=== PATIENT | female | born 1940 | race Caucasian/White ===

== ENCOUNTER 2021-06-03 11:23 | Outpatient (CLI) | payer MEDICARE, OTHER | END 2021-06-03 11:24 | disposition home or self-care (01) | LOC: BICRAD 11:23 | PROVIDERS: ATTEND Family Medicine | DX: M79.672 Pain in left foot (principal) ==

== ENCOUNTER 2023-02-02 10:40 | Inpatient (IN) | payer MEDICARE, OTHER ==
[2023-02-02 11:06] LABS: #Eosinphils 0.1 thou/uL (0.0-0.7); #Monocytes 0.6 thou/uL (0.11-0.59); #Neutrophils 4.8 thou/uL (1.40-6.50); %Basophils 0.4 % (0.0-1.0); %Eosinophils 0.7 % (0.0-10.0); %Lymphocytes 22.8 % (21.0-51.0); %Monocytes 8.7 % (0.0-10.0); %Neutrophils 67.3 % (42.0-75.0); Hematocrit 41.3 % (36.0-47.0); Hemoglobin 13.5 g/dL (12.0-16.0); Mean Corpuscular HGB CONC 32.7 g/dL (32.0-36.0); Mean Corpuscular Volume 85.5 fl (78.0-98.0); Mean Platelet Volume 9.9 fL (7.4-10.4); Platelet Count 269 10x3/uL (130-400); RBC Distribution Width 14.1 % (11.5-14.5); Red Blood Cell (RBC) Count 4.83 mill/uL (4.20-5.40); White Blood Cell (WBC) Count 7.2 10x3/uL (4.8-10.8)
[2023-02-02] MEDS ORDERED: dilTIAZem 125 MG/25 ML SDV ONE (11:12)
[2023-02-02 11:25] LABS: ALT (SGPT) 13 U/L (8-55); AST (SGOT) 22 U/L (5-34); Albumin 4.8 g/dL (3.4-4.8); Alkaline Phosphatase 85 U/L (40-110); Anion Gap 17 mmol/L (10-20); BUN (Urea Nitrogen) 16 mg/dL (9.8-20.1); Bilirubin, Total 0.8 mg/dL (0.2-1.2); Calc. Creatinine Clearance 0 mL/min (70-130); Calcium 9.8 mg/dL (7.8-10.44); Carbon Dioxide 27 mmol/L (23-31); Chloride 102 mmol/L (98-107); Estimated GFR 56; Globulin 3.8 g/dL (2.4-3.5); Glucose 122 mg/dL (83-110); Potassium 3.5 mmol/L (3.5-5.1); Protein, Total 8.6 g/dL (5.8-8.1); Sodium 142 mmol/L (136-145)
[2023-02-02 11:27] LABS: INR-International Normal Ratio 1.9; PTT 35.8 sec (22.9-36.1); Prothrombin Time 22.2 sec (12.0-14.7)
[2023-02-02 11:28] LABS: Troponin I 0.018 ng/mL (< 0.028)
[2023-02-02] MEDS ORDERED: Acetaminophen 325 MG TAB PO PRN (12:39)
[2023-02-02] MEDS ORDERED: Ondansetron PF 4 MG/2 ML Vial IVP PRN (12:39)
[2023-02-02] MEDS ORDERED: HYDROcodone/Acetaminophen 5/325 mg Tablet PO PRN (12:39)
[2023-02-02] MEDS ORDERED: dilTIAZem 125 MG in Sodium Chloride 0.9% 100 ML IVPB SCH (12:45)
[2023-02-02] MEDS ORDERED: Dronedarone HCl 400 MG TAB PO SCH (14:00)
[2023-02-02 14:10] LABS: Troponin I 0.017 ng/mL (< 0.028)
[2023-02-02 17:34] LABS: Troponin I 0.016 ng/mL (< 0.028)
[2023-02-02] MEDS ORDERED: FLU VACC QS2023(65UP)/MF59C/PF 60 MCG/0.5 ML SYRINGE IM ONE (18:00)
[2023-02-02] MEDS ORDERED: Famotidine/PF 20 mg/2ml Vial SLOW IVP SCH (21:00)
[2023-02-02 21:57] VITALS: BMI 31.8
[2023-02-03 06:38] LABS: #Eosinphils 0.2 thou/uL (0.0-0.7); #Monocytes 0.6 thou/uL (0.11-0.59); %Basophils 0.5 % (0.0-1.0); %Eosinophils 3.6 % (0.0-10.0); %Lymphocytes 30.4 % (21.0-51.0); %Monocytes 11.1 % (0.0-10.0); %Neutrophils 54.2 % (42.0-75.0); Hematocrit 34.6 % (36.0-47.0); Hemoglobin 10.9 g/dL (12.0-16.0); Mean Corpuscular HGB CONC 31.5 g/dL (32.0-36.0); Mean Corpuscular Hemoglobin 27.7 pg (27.0-31.0); Mean Platelet Volume 10.6 fL (7.4-10.4); Platelet Count 234 10x3/uL (130-400); RBC Distribution Width 14.2 % (11.5-14.5); Red Blood Cell (RBC) Count 3.93 mill/uL (4.20-5.40); White Blood Cell (WBC) Count 5.6 10x3/uL (4.8-10.8)
[2023-02-03 07:11] LABS: Anion Gap 13 mmol/L (10-20); BUN (Urea Nitrogen) 16 mg/dL (9.8-20.1); Calc. Creatinine Clearance 55 mL/min (70-130); Calcium 8.7 mg/dL (7.8-10.44); Carbon Dioxide 27 mmol/L (23-31); Chloride 108 mmol/L (98-107); Estimated GFR 61; Glucose 98 mg/dL (83-110); Magnesium 2.2 mg/dL (1.6-2.6); Potassium 3.6 mmol/L (3.5-5.1); Sodium 144 mmol/L (136-145)
[2023-02-03] MEDS ORDERED: Potassium Chloride 20 MEQ TAB PO SCH (08:15)
[2023-02-03] MEDS ORDERED: Dronedarone HCl 400 MG TAB PO SCH (09:45)
[2023-02-03] MEDS: Rivaroxaban 10 MG TAB PO SCH (10:41)
[2023-02-03] MEDS: Montelukast Sodium 10 mg Tablet PO SCH (10:41)
[2023-02-03] MEDS: Furosemide 40 MG TAB PO SCH (10:42)
[2023-02-03] MEDS: dilTIAZem 125 MG, Admixture Fee 1 EACH in Sodium Chloride 0.9% 100 ML IVPB SCH (15:39)
[2023-02-03] MEDS ORDERED: FLU VACC QS2023(65UP)/MF59C/PF 60 MCG/0.5 ML SYRINGE IM ONE (17:00)
[2023-02-03] MEDS: Dronedarone HCl 400 MG TAB PO SCH (18:16)
[2023-02-03] MEDS ORDERED: diphenhydrAMINE 25 MG CAP PO PRN (18:39)
[2023-02-04] MEDS: dilTIAZem 125 MG, Admixture Fee 1 EACH in Sodium Chloride 0.9% 100 ML IVPB SCH (00:27)
[2023-02-04 04:53] LABS: #Eosinphils 0.2 thou/uL (0.0-0.7); #Monocytes 0.7 thou/uL (0.11-0.59); #Neutrophils 4.4 thou/uL (1.40-6.50); %Basophils 0.4 % (0.0-1.0); %Eosinophils 2.5 % (0.0-10.0); %Lymphocytes 24.7 % (21.0-51.0); %Monocytes 9.8 % (0.0-10.0); %Neutrophils 62.3 % (42.0-75.0); Hematocrit 33.4 % (36.0-47.0); Hemoglobin 10.7 g/dL (12.0-16.0); Mean Corpuscular Hemoglobin 28.3 pg (27.0-31.0); Mean Corpuscular Volume 88.4 fl (78.0-98.0); Mean Platelet Volume 10.1 fL (7.4-10.4); Platelet Count 226 10x3/uL (130-400); RBC Distribution Width 14.4 % (11.5-14.5); Red Blood Cell (RBC) Count 3.78 mill/uL (4.20-5.40); White Blood Cell (WBC) Count 7.1 10x3/uL (4.8-10.8)
[2023-02-04 05:18] LABS: Anion Gap 13 mmol/L (10-20); BUN (Urea Nitrogen) 21 mg/dL (9.8-20.1); Calc. Creatinine Clearance 56 mL/min (70-130); Carbon Dioxide 25 mmol/L (23-31); Chloride 108 mmol/L (98-107); Estimated GFR 62; Glucose 106 mg/dL (83-110); Potassium 3.7 mmol/L (3.5-5.1); Sodium 142 mmol/L (136-145)
[2023-02-04 08:30] VITALS: TEMP 97.8
[2023-02-04] MEDS: Potassium Chloride 20 MEQ in Premix Bag 1 BAG IVPB SCH ×2 (08:53→10:16)
[2023-02-04] MEDS: Furosemide 40 MG TAB PO SCH (08:54)
[2023-02-04] MEDS: Dronedarone HCl 400 MG TAB PO SCH (08:54)
[2023-02-04] MEDS: Rivaroxaban 10 MG TAB PO SCH (08:54)
[2023-02-04] MEDS: Montelukast Sodium 10 mg Tablet PO SCH (08:54)
[2023-02-04] MEDS ORDERED: PROPOFOL 200 MG/20 ML VIAL ONE (10:01)
[2023-02-04] MEDS ORDERED: Lidocaine 1% PF 5 ML VIAL ONE (10:01)
[2023-02-04] MEDS ORDERED: Potassium Chloride 20 MEQ TAB PO SCH ×2 (11:00→17:00)
[2023-02-04 11:48] VITALS: BP 139/77
== END 2023-02-04 13:14 | disposition home or self-care (01) | DRG 310 ==
LOC: ERS 10:40 → 2SW 12:17 → OBSVTOIN 02-03 09:56
PROVIDERS: ADMIT Family Medicine; ATTEND Internal Medicine
PROC: 5A2204Z Restoration of Cardiac Rhythm, Single (ICD-10-PCS; principal; 2023-02-04)
DX: I48.92 Unspecified atrial flutter (principal); I48.0 Paroxysmal atrial fibrillation; K21.9 Gastro-esophageal reflux disease without esophagitis; E66.9 Obesity, unspecified; I12.9 Hypertensive chronic kidney disease with stage 1 through stage 4 chronic kidney disease, or unspecified chronic kidney disease; N18.2 Chronic kidney disease, stage 2 (mild); E87.6 Hypokalemia; D63.1 Anemia in chronic kidney disease; Z98.890 Other specified postprocedural states; Z88.0 Allergy status to penicillin; Z88.2 Allergy status to sulfonamides; Z88.8 Allergy status to other drugs, medicaments and biological substances; Z79.899 Other long term (current) drug therapy; Z86.718 Personal history of other venous thrombosis and embolism; Z68.31 Body mass index [BMI] 31.0-31.9, adult
CPT/HCPCS: 36415; 71045; 80048; 80053; 83735; 83880; 84443; 84484; 85025; 85610; 85730; 90471; 90694; 92960; 93005; 93010; 94760; 96365; 96366; 96374; G0008; G0378; J2704; J3480; J3490

== ENCOUNTER 2023-02-16 11:10 | Outpatient (CLI) | payer MEDICARE, OTHER ==
[2023-02-16 13:04] LABS: Hematocrit 41.1 % (34.9-44.5); Hemoglobin 13.2 g/dL (12.0-15.5); Mean Corpuscular HGB CONC 32.1 g/dL (32.0-36.0); Mean Corpuscular Hemoglobin 27.6 pg (27.0-33.0); Mean Platelet Volume 9.7 fl (7.4-10.4); Platelet Count 388 10x3/uL (150-450); RBC Distribution Width 13.6 % (11.5-14.5); Red Blood Cell (RBC) Count 4.78 10x6/uL (3.90-5.03); White Blood Cell (WBC) Count 7.5 10x3/uL (3.5-10.5)
[2023-02-16 13:23] LABS: INR-International Normal Ratio 1.2; Prothrombin Time 12.8 sec (9.5-12.1)
[2023-02-16 13:38] LABS: ALT (SGPT) 11 U/L (8-55); AST (SGOT) 16 U/L (5-34); Albumin 4.1 g/dL (3.4-4.8); Alkaline Phosphatase 70 U/L (40-110); Anion Gap 16 mmol/L (10-20); BUN (Urea Nitrogen) 24 mg/dL (9.8-20.1); Bilirubin, Total 0.4 mg/dL (0.2-1.2); Calc. Creatinine Clearance 0 mL/min (70-130); Calcium 9.2 mg/dL (7.8-10.44); Carbon Dioxide 26 mmol/L (23-31); Chloride 102 mmol/L (98-107); Estimated GFR 64; Glucose 99 mg/dL (83-110); Potassium 4.7 mmol/L (3.5-5.1); Protein, Total 7.1 g/dL (5.8-8.1); Sodium 139 mmol/L (136-145)
== END 2023-02-16 11:11 | disposition home or self-care (01) ==
LOC: LABBT 11:10
PROVIDERS: ATTEND Ophthalmology
DX: Z01.812 Encounter for preprocedural laboratory examination (principal); I48.91 Unspecified atrial fibrillation
CPT/HCPCS: 80053; 85027; 85610; 85730

== ENCOUNTER 2023-02-18 08:18 | Day surgery (SDC) | payer MEDICARE, OTHER ==
[2023-02-16 12:09] VITALS: BMI 31.6
[2023-02-18] MEDS ORDERED: Heparin 10,000 UNITS/ 10 ML VIAL ONE (11:20)
[2023-02-18] MEDS ORDERED: Protamine Sulfate 50 MG/5 ML VIAL ONE (11:20)
[2023-02-18] MEDS ORDERED: fentaNYL 50 mcg/mL 1 mL Vial ONE (13:26)
[2023-02-18] MEDS ORDERED: Famotidine/PF 20 mg/2ml Vial ONE (13:26)
[2023-02-18] MEDS ORDERED: SUGAMMADEX SODIUM 200 MG/2 ML VIAL ONE (13:26)
[2023-02-18] MEDS ORDERED: Vasopressin 20 UNITS/ML VIAL ONE (13:26)
[2023-02-18] MEDS ORDERED: PHENYLEPHRINE-NS 100 MCG/ML 10 ML SYRINGE ONE (13:37)
[2023-02-18] MEDS ORDERED: Rocuronium Bromide 10 MG/ML (10ML VIAL) ONE (13:37)
[2023-02-18] MEDS ORDERED: Ondansetron PF 4 MG/2 ML Vial ONE (13:37)
[2023-02-18] MEDS ORDERED: PROPOFOL 200 MG/20 ML VIAL ONE (13:37)
[2023-02-18] MEDS ORDERED: Lidocaine 1% PF 5 ML VIAL ONE (13:37)
== END 2023-02-18 17:37 | disposition home or self-care (01) ==
LOC: SDC 08:18
PROVIDERS: ATTEND Internal Medicine Cardiovascular Disease
DX: I48.3 Typical atrial flutter (principal)
CPT/HCPCS: 36556; 75822; C1732; C1759; C1760; C1893; C1894 ×2; J3010; J1644; J2405; J2704; J2720; S0028

== ENCOUNTER 2023-03-05 07:55 | Outpatient (CLI) | payer MEDICARE, OTHER | END 2023-03-05 07:56 | disposition home or self-care (01) | LOC: CT 07:55 | PROVIDERS: ATTEND Internal Medicine Cardiovascular Disease | DX: I82.419 Acute embolism and thrombosis of unspecified femoral vein (principal); I48.19 Other persistent atrial fibrillation; E27.8 Other specified disorders of adrenal gland | CPT/HCPCS: 74177 ==

== ENCOUNTER → 2023-05-25 | Day surgery (SDC) | payer MEDICARE, OTHER ==
[2023-05-21 13:00] VITALS: BMI 35.2
[2023-05-21 13:21] LABS: Hematocrit 29.5 % (34.9-44.5); Hemoglobin 8.8 g/dL (12.0-15.5); Mean Corpuscular HGB CONC 29.8 g/dL (32.0-36.0); Mean Corpuscular Hemoglobin 24.4 pg (27.0-33.0); Mean Corpuscular Volume 81.9 fl (81.6-98.3); Mean Platelet Volume 9.3 fl (7.4-10.4); Platelet Count 429 10x3/uL (150-450); RBC Distribution Width 18.4 % (11.5-14.5); White Blood Cell (WBC) Count 6.5 10x3/uL (3.5-10.5)
[2023-05-21 13:43] LABS: INR-International Normal Ratio 1.2; PTT 37.1 sec (22.0-33.0); Prothrombin Time 13.2 sec (9.5-12.1)
[2023-05-21 14:06] LABS: Anion Gap 11 mmol/L (10-20); BUN (Urea Nitrogen) 12 mg/dL (9.8-20.1); Calc. Creatinine Clearance 56 mL/min (70-130); Calcium 8.8 mg/dL (7.8-10.44); Carbon Dioxide 28 mmol/L (23-31); Chloride 106 mmol/L (98-107); Estimated GFR 62; Glucose 110 mg/dL (83-110); Potassium 4.3 mmol/L (3.5-5.1); Sodium 141 mmol/L (136-145)
[~2023-05-25] MED LIST: Lidocaine 1% PF 5 ML VIAL ONE; PROPOFOL 200 MG/20 ML VIAL ONE
== END ==
LOC: SDC 06:51
PROVIDERS: ATTEND Internal Medicine Cardiovascular Disease
PROC: 5A2204Z Restoration of Cardiac Rhythm, Single (ICD-10-PCS; principal; 2023-05-25)
PROC: B245ZZ4 Ultrasonography of Left Heart, Transesophageal (ICD-10-PCS; 2023-05-25)
DX: I48.92 Unspecified atrial flutter (principal); I48.19 Other persistent atrial fibrillation; I11.0 Hypertensive heart disease with heart failure; I50.32 Chronic diastolic (congestive) heart failure; K21.9 Gastro-esophageal reflux disease without esophagitis; Z88.0 Allergy status to penicillin; Z88.2 Allergy status to sulfonamides; Z91.048 Other nonmedicinal substance allergy status; Z98.890 Other specified postprocedural states; Z79.01 Long term (current) use of anticoagulants; Z79.899 Other long term (current) drug therapy
CPT/HCPCS: 80048; 85027; 85610; 85730; 92960; 93005; 93010; 93312; J2704